=== PATIENT | female | born 1940 | race Caucasian/White ===

== ENCOUNTER → 2017-03-06 | Outpatient (CLI) | payer OTHER ==
[~2017-03-06] MED LIST: ACETAMINOPHEN PO; ACTONEL150 MG PO; ALENDRONATE SOD10 MG PO; ASPIRIN EC81 M1 PO; ASPIRIN PO; ASPIRIN81 M2 PO; ASPIRIN81 MG PO; ASTELIN137 MCG; ASTEPRO205.5 MCG/; ASTEPRO205.5 MCG/ INH; ATENOLOL; ATENOLOL25 MG PO; AUGMENTIN1 TAB.SR1; CELEBREX PO; CIPRO250 MG PO; DITROPAN PO; DITROPAN XL; DITROPAN XL PO; DITROPAN XL10 MG; DITROPAN-XL5 MG PO; DITROPAN5 MG DOB; ESCITALOPRAM OX10 MG PO; FISH OIL 1,0001 CAP PO; FLAGYL PO; FLAX SEED OIL1000 MG; IBUPROFEN200 M1 PO; LEVAQUIN PO; LEXAPRO; LINZESS145 MCG PO; LIPITOR; LORTAB 7.5-5001 TAB PO; MEDROL; NAPROSYN-EC500 M1 PO; NAPROXEN PO; NASONEX17 GM; OXYCODONE HCL10 M1 PO; PANTOPRAZOLE SO40 MG PO; PAROXETINE HCL20 MG PO; PAXIL PO; PHENERGAN25 M1 PO; PLAVIX PO; PRILOSEC; PRILOSEC20 MG DOB; SIMVASTATIN40 MG PO; SINGULAIR PO; VANTIN200 MG PO; ZOCOR PO; [UNRECOGNIZED DRUG - OTHER]; [UNRECOGNIZED DRUG - OTHER] PO
--- NOTE | ~2017-03-06 | CR63 ---
[facility] A Service of [facility] RADIOLOGY TEXT RESULTS PATIENT: CESAR SHIELDS LOCATION: [facility] : 39 UNIT #: [id number] AGE: [address]: Aung Basilio MD SEX: F ORDER DR: [id number] [facility] [address] [place], [place] [address] [id number] O MR#: [id number] [facility] #: [id number] NAME: CESAR SHIELDS. : 1940 SEX: F STUDY DATE/TIME: 03/06/2017 15:53 UNIT: [facility] ROOM: STUDY DESCRIPTION: CR Chest 2 View Attending Physician: Marvin Basilio M.D. Referring Physician: Marvin Basilio M.D. Ordering Physician: Marvin Basilio M.D. Primary Care Physician: Rosa Grajeda M.D. MEDICAL IMAGING REPORT This report is preliminary unless electronic signature is present EXAM Chest x-ray 03/06/2017 HISTORY 76-year-old female complaining of 2-week history of shortness of air and chest pain. TECHNIQUE PA and lateral upright chest series. FINDINGS The exam shows no active disease in the chest. Mild cardiomegaly. Postop changes CABG. Pulmonary vascularity is normal. Hyperinflation is noted, but the lungs appear clear. No pleural effusion. Multiple chronic-appearing mid and lower thoracic vertebral compression fracture deformities with lower thoracic or upper lumbar vertebral plasty procedures. Demineralization suggesting osteoporosis. Old healed left humerus fracture. Previous cervical spine fusion surgery. IMPRESSION 1. No active disease. 2. Pulmonary hyperinflation. Lungs clear. 3. Mild cardiomegaly. CABG. Dictated by... Yrn Majano M.D. THIS IS AN ELECTRONICALLY VERIFIED REPORT Yrn Majano M.D. at 03/11/2017 1:47 PM Antonia TD: 03/06/2017 16:59 [facility] A Service of [facility] RADIOLOGY TEXT RESULTS PATIENT: CESAR SHIELDS LOCATION: [facility] #: [id number] : 39 UNIT #: [id number] AGE: [address]: Aung Basilio MD SEX: F ORDER DR: SANDY #: [id number] MEDICAL IMAGING REPORT Page 1 of 1 COPY
== END | disposition home or self-care (01) ==
LOC: CRAD 15:23
DX: J44.9 Chronic obstructive pulmonary disease, unspecified (principal); I51.7 Cardiomegaly; R91.8 Other nonspecific abnormal finding of lung field; Z95.1 Presence of aortocoronary bypass graft
CPT/HCPCS: 71020

== ENCOUNTER → 2017-04-17 | Day surgery (SDC) | payer OTHER ==
--- NOTE | ~2017-04-17 | OR ---
Unit #: [id number] #: [id number] Patient: CESAR SHIELDS [id number] [address] [place], [place] [address] [id number] O MR#: [id number] NAME: CESAR SHIELDS ROOM: Date of Procedure: 04/17/2017 Admission Date: 04/17/2017 Surgeon: Jas Almonte M.D. : 1940 Attending Physician: Jas Almonte M.D. Primary Care Physician: Rosa Grajeda M.D. OPERATIVE REPORT PROCEDURES PERFORMED Esophagogastroduodenoscopy to descending duodenum and endoscopic retrograde cholangiopancreatography with brushings as well as stenting of the common bile duct. 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 MEDICATIONS Monitored anesthesia. POSTOPERATIVE FINDINGS 1. Ampulla was very prominent; however, no clear growth was seen. 2. Bile duct was significantly dilated with a maximum diameter of about 20 to 22 mm. No clear mass or stricture was seen. 3. No stones or sludge was seen. 4. Balloon extraction was carried out, which was negative. 5. Brushings obtained from the ampullary level. 6. 10 x 10 stent was placed over the duct. 7. PD was not injected. 8. 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 9. Distal esophagus shows a small hiatal hernia as well as a nonobstructing esophageal ring. 10. Normal stomach and duodenum and distal duodenum. PLAN Continue with symptomatic treatment for now. Follow up on the brushings as well as symptomatic relief. DESCRIPTION OF PROCEDURE The patient was explained of the procedure, risks, and benefits along with risks and benefits of anesthesia. Risk of pancreatitis was discussed also. She was brought to the endoscopy room. Propofol anesthesia was given. She was laid in a prone position. EGD was done first. Scope was passed down the mouth into the esophagus, stomach, duodenum, and distal duodenum. Ampulla appears to be normal. Gastric and duodenal mucosa was normal. Findings have been described above. At this point, we pushed the side-viewing scope down the mouth into the esophagus and stomach. Ampulla was visualized. After a few attempts, I was able to cannulate the common Unit #: [id number] #: [id number] Patient: CESAR SHIELDS bile duct. Findings have been described above. Balloon extraction was first carried out, which was negative. Brushings were then obtained. At this point, we elected to do a 10 x 10 biliary stenting, which was done successfully without any complications. Pancreatic duct was not injected at purpose. The scope was then gently pulled out. Stomach was decompressed. She tolerated it well. No major complications were seen. Dictated by... Dominique Escobedo/noa TD: 04/17/2017 16:14 JOB #: [id number] CC: Rosa Grajeda M.D. OPERATIVE REPORT Page 1 of 1 X Jas Almonte MD X PROCEDURE OPERATIVE NOTE
--- NOTE | ~2017-04-17 | CR84 ---
[facility] A Service of [facility] RADIOLOGY TEXT RESULTS PATIENT: CESAR SHIELDS LOCATION: [facility] : 39 UNIT #: [id number] AGE: [address]: Jas Almonte MD SEX: F ORDER DR: [id number] [facility] [address] [place], [place] [address] [id number] O MR#: [id number] [facility] #: [id number] NAME: CESAR SHIELDS : 1940 SEX: F STUDY DATE/TIME: 04/17/2017 8:12 UNIT: [facility] ROOM: STUDY DESCRIPTION: CR ERCP Biliary and Pancr SI Attending Physician: Jas Almonte M.D. Ordering Physician: Jas Almonte M.D. Primary Care Physician: Rosa Grajeda M.D. MEDICAL IMAGING REPORT This report is preliminary unless electronic signature is present EXAM Fluoroscopy up to 1 hour. DATE: 04/17/2017 HISTORY Increasing alkaline phosphatase levels. Dilated CBD. COMPARISON ERCP 06/16/2015 FINDINGS Six spot fluoroscopic images were obtained during ERCP performed by Dr. Almonte. Fluoroscopy time 2.2 minutes was recorded by the technologist. Initial image demonstrates cholecystectomy changes, and vertebroplasty changes within the thoracolumbar vertebrae. Pancreatic duct was not sought. Contrast was injected in the common bile duct which appears diffusely dilated. Very mild downstream intrahepatic biliary ductal dilation is well. No suspicious filling defects are identified. There is mild tapered narrowing of the CBD near the level of the ampulla. Balloon catheterization was performed, but no stones were extracted. The performing physician states biopsy was obtained at the level of the ampulla. The final procedure image demonstrates a single CBD stent in place, in satisfactory position. Please refer to endoscopist's report for additional findings and recommendations. Dictated by... Cathy Rodriguez M.D. THIS IS AN ELECTRONICALLY VERIFIED REPORT [facility] A Service of [facility] RADIOLOGY TEXT RESULTS PATIENT: CESAR SHIELDS LOCATION: [facility] : 39 UNIT #: [id number] AGE: [address]: Jas Almonte MD SEX: F ORDER DR: Cathy Rodriguez M.D. at 04/18/2017 9:36 PM HEAVEN/hesham TD: 04/17/2017 23:05 JOB #: [id number] MEDICAL IMAGING REPORT Page 1 of 1 COPY
== END | disposition home or self-care (01) ==
LOC: COPS 06:18
DX: K83.8 Other specified diseases of biliary tract (principal); K22.5 Diverticulum of esophagus, acquired; K44.9 Diaphragmatic hernia without obstruction or gangrene; K22.8 Other specified diseases of esophagus; I25.10 Atherosclerotic heart disease of native coronary artery without angina pectoris; K21.9 Gastro-esophageal reflux disease without esophagitis; F17.210 Nicotine dependence, cigarettes, uncomplicated; Z95.1 Presence of aortocoronary bypass graft; Z98.51 Tubal ligation status; Z98.890 Other specified postprocedural states; Z79.82 Long term (current) use of aspirin; Z79.899 Other long term (current) drug therapy; Z87.440 Personal history of urinary (tract) infections
CPT/HCPCS: 74330; 88104; J1610; J2250

== ENCOUNTER → 2017-06-03 | Day surgery (SDC) | payer OTHER ==
--- NOTE | ~2017-06-03 | OR ---
Unit #: [id number] #: [id number] Patient: CESAR SHIELDS [id number] [address] [place], [place] [address] [id number] O MR#: [id number] NAME: CESAR SHIELDS ROOM: Date of Procedure: 06/03/2017 Admission Date: 06/03/2017 Surgeon: Jas Almonte M.D. : 1940 Attending Physician: Jas Almonte M.D. Primary Care Physician: Rosa Grajeda M.D. OPERATIVE REPORT PROCEDURE PERFORMED Endoscopic retrograde cholangiopancreatography and stent removal. INDICATIONS FOR PROCEDURE The patient with significant ampullary stenosis, right upper quadrant pain, as well as abnormal LFTs, had restenosis and an ERCP done with sphincterotomy and extension and stent placement last time, undergoing here for removal of the stent as well as repeat evaluation of the bile duct and ampulla. MEDICATIONS Monitored anesthesia. POSTOPERATIVE FINDINGS 1. Existing CBD stent was removed. 2. Bile duct significantly dilated as noted last time with maximum up to 25 mm. 3. No filling defects. 4. Balloon extraction carried out. No stones or sludge was extracted. 5. I could pass a 12 mm balloon through the sphincterotomy at this time. 6. PD not injected. 7. Limited EGD exam was within normal limits. PLAN Continue with symptomatic treatment. DESCRIPTION OF PROCEDURE The patient was explained of the procedure, risks, and benefits along with risks and benefits of anesthesia. She was brought to the endoscopy room. Propofol anesthesia was given. She was laid in the prone position. The scope was passed down the mouth into the esophagus, stomach, duodenum, and distal duodenum. Stent was seen extending out of the ampulla using a snare. I was able to grab the stent and pulled it out in one piece under fluoroscopic guidance. Bile duct was then cannulated. Findings as described. No stones or sludge was seen. Balloon extraction was then carried out, which was negative. Gently, the scope was pulled out. Stomach was decompressed. She tolerated the procedure well. No major complications were seen. Dictated by... Unit #: [id number] #: [id number] Patient: CESAR SHIELDS Dominiqeu Escobedo/noa TD: 06/03/2017 13:49 JOB #: [id number] OPERATIVE REPORT Page 1 of 1 X Jas Almonte MD PROCEDURE OPERATIVE NOTE
--- NOTE | ~2017-06-03 | CR84 ---
[facility] A Service of [facility] RADIOLOGY TEXT RESULTS PATIENT: CESAR SHIELDS LOCATION: [facility] : 39 UNIT #: [id number] AGE: [address]: Jas Almonte MD SEX: F ORDER DR: [id number] [facility] [address] [place], [place] [address] [id number] O MR#: [id number] Acc #: [id number] NAME: CESAR SHIELDS. : 1940 SEX: F STUDY DATE/TIME: 06/03/2017 11:06 UNIT: [facility] ROOM: STUDY DESCRIPTION: CR ERCP Biliary and Pancr SI Attending Physician: Jas Almonte M.D. Ordering Physician: Jas Almonte M.D. Primary Care Physician: Rosa Grajeda M.D. MEDICAL IMAGING REPORT This report is preliminary unless electronic signature is present EXAM ERCP 06/03/2017 HISTORY Ampullary stenosis. ERCP performed for stent removal. FINDINGS ERCP was performed by Dr. Almonte. 9 spot film radiographs of the right upper quadrant were obtained and 1 minute, 42 seconds of fluoroscopy time was utilized. The pancreatic duct was not injected. The common bile duct stent was removed. Contrast injection of the biliary tree showed dilatation of the common bile duct to 25 mm. No filling defects were seen. Balloon catheter was pulled retrograde through the common duct but no stones were obtained. Dictated by... Juan Hernadez M.D. THIS IS AN ELECTRONICALLY VERIFIED REPORT Juan Hernadez M.D. at 06/04/2017 7:28 AM KRT/pcl TD: 06/03/2017 23:24 JOB #: [id number] MEDICAL IMAGING REPORT Page 1 of 1 COPY
[2017-06-03 13:12] LABS: BASOPHIL# 0.1 X10e3 (0-0.3); BASOPHIL% 1.2 % (0-2.5); EOSINOPHIL# 0.3 X10e3 (0-0.7); EOSINOPHIL% 4.3 % (0.0-7.0); HEMATOCRIT 35.9 % (35.0-45.0); HEMOGLOBIN 12.2 gm/dL (12.0-16.0); LYMPHOCYTE# 1.3 X10e3 (1.0-3.5); LYMPHOCYTE% 17.4 % (17.0-45.0); MEAN CELL VOLUME 91.9 FL (83-96); MEAN CORPUSCULAR HEMOGLOBIN 31.3 PG (28-34); MEAN CORPUSCULAR HGB CONC 34.1 g/dL (30-36); MEAN PLATELET VOLUME 8.8 FL (6.5-11.5); MONOCYTE# 0.6 X10e3 (0-1.0); MONOCYTE% 8.2 % (3.0-12.0); NEUTROPHIL# 5.2 X10e3 (1.5-7.1); NEUTROPHIL% 68.9 % (40-75); PLATELET COUNT 193 X10e3 (140-420); RED BLOOD COUNT 3.91 X10e (3.90-5.30); WHITE BLOOD COUNT 7.5 X10e3 (4.0-10.5)
[2017-06-03 13:14] LABS: DIFF IND NO
[2017-06-03 13:32] LABS: ALBUMIN SERUM 3.7 g/dL (3.5-5.0); BILIRUBIN,TOTAL 0.2 mg/dL (0.2-2.0); BUN/CREATININE RATIO 22.85; CALCIUM SERUM 8.9 mg/dL (8.4-10.2); CREATININE SERUM 0.7 mg/dL (0.6-1.4); POTASSIUM 4.4 mmol/L (3.5-5.1); PROTEIN TOTAL SERUM 6.8 g/dL (6.0-8.3)
[2017-06-06 09:39] LABS: CA 19-9 4 U/mL (<34); CA125 9 U/mL (<35)
== END | disposition home or self-care (01) ==
LOC: COPS 08:00
PROVIDERS: Internal Medicine
DX: Z46.59 Encounter for fitting and adjustment of other gastrointestinal appliance and device (principal); I25.10 Atherosclerotic heart disease of native coronary artery without angina pectoris; K21.9 Gastro-esophageal reflux disease without esophagitis; F17.210 Nicotine dependence, cigarettes, uncomplicated; Z98.890 Other specified postprocedural states; Z98.51 Tubal ligation status; Z90.49 Acquired absence of other specified parts of digestive tract; Z95.1 Presence of aortocoronary bypass graft; Z95.5 Presence of coronary angioplasty implant and graft; Z79.82 Long term (current) use of aspirin; Z79.899 Other long term (current) drug therapy; Z87.440 Personal history of urinary (tract) infections
CPT/HCPCS: 74330; 80053; 85025; 86301; 86304